=== PATIENT | male | born 1985 | race Caucasian/White ===

== ENCOUNTER → 2020-05-31 | Outpatient (CLI) | payer OTHER | LOC: EXRD 08:14 | DX: R79.89 Other specified abnormal findings of blood chemistry (principal); K76.0 Fatty (change of) liver, not elsewhere classified | CPT/HCPCS: 76705 ==

== ENCOUNTER 2021-02-03 17:30 | Emergency (ER) | payer OTHER ==
[2021-02-03] MEDS ORDERED: ZOFRAN ODT 4 MG4 MG PO (22:17)
[2021-02-03] MEDS ORDERED: PROVENTIL HFA6.7 GM INH (22:17)
== END 2021-02-03 23:00 | disposition home or self-care (01) ==
LOC: ER1 17:30
DX: R42 Dizziness and giddiness (principal); R11.10 Vomiting, unspecified; Z57.5 Occupational exposure to toxic agents in other industries; I10 Essential (primary) hypertension; F17.210 Nicotine dependence, cigarettes, uncomplicated; K21.9 Gastro-esophageal reflux disease without esophagitis
CPT/HCPCS: 82805; 99284